=== PATIENT | male | born 1970 | race Two or more races ===

== ENCOUNTER 2018-02-20 14:20 | Emergency (ER) | payer SELFPAY ==
[~2018-02-20] VITALS: Ht 170.2 cm; Wt 60.8 kg
[2018-02-20 16:16] VITALS: BP 136/88
[2018-02-20] MEDS ORDERED: cefTRIAXone SOD 1,000 MG VL IM ONE (16:30)
== END 2018-02-20 18:47 | disposition home or self-care (01) ==
LOC: ER 14:20
DX: L03.116 Cellulitis of left lower limb (principal)
CPT/HCPCS: 96372; 99283; J0696